=== PATIENT | female | born 1975 | race Caucasian/White ===

== ENCOUNTER 2021-01-26 13:20 | Observation (INO) | payer BC ==
[2021-01-26] MEDS ORDERED: Sodium Chloride 0.9% 2.5 ML Syringe FLUSH PRN (13:25)
[2021-01-26] MEDS ORDERED: Sodium Chloride 0.9% 10 ML Syringe FLUSH PRN (13:25)
--- NOTE | 2021-01-26 13:29 | EDM.PDOC ---
ED HPI GENERAL MEDICAL PROBLEM - General Chief Complaint: Syncope Stated Complaint: FALL Time Seen by Provider: 01/26/21 13:25 - History of Present Illness INITIAL COMMENTS - FREE TEXT/NARRATIVE: History of present illness: [] The patient is here for syncope. 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 She only gets 4 or 5 hours of sleep a day. She has children that are adults but not at home. Patient says she was at the bar and felt normal and then she was suddenly on the floor and people were around her. She said it happened 3 times and witnesses at the bar said she passed out completely. They said she fell and hit her head. She does have a headache. Is never done this before. She does not smoke. She drinks a little bit. She has had a hysterectomy. Review of systems: As per history of present illness and below otherwise all systems reviewed and negative. Past medical history: As per history of present illness and as reviewed below otherwise noncontributory. Surgical history: As per history of present illness and as reviewed below otherwise noncontributory. Social history: No reported history of drug or alcohol abuse. Family history: As per history of present illness and as reviewed below otherwise noncontributory. Physical exam: Constitutional - well developed, well-nourished and in no acute distress HEENT - normocephalic, no evidence of trauma - external nose and mouth normal - no mass in neck and no JVD - mucosae moist EYES - full EOM, PERRL, no icterus - no evidence of inflammation, injection, or drainage Respiratory - no respiratory distress, equal bilateral expansion, lungs clear to auscultation and no abnormal lung sounds Cardiovascular - Regular Rhythm with S1 and S2 appreciated and no murmur, gallop or rub. GI - abdomen soft without distension or organomegaly - normal bowel sounds - no guard or rebound Musculoskeletal no gross deformity of long bones or joints - no tenderness, swelling or edema Neurologic - Alert and oriented times four - CN II-XII grossly intact - motor sensory and coordination symmetrically normal Psychiatric - appropriate mood and affect with normal thought content Hematologic - No petechiae or purpura - mucosa appropriate color and sclera not pale - normal nail bed color and refill Integument - no rash or evidence of trauma - normal turgor Diagnostics: [] Therapeutics: [] Impression: [] Plan: [] Definitive disposition and diagnosis as appropriate pending reevaluation and review of above. - Related Data Allergies Allergy/AdvReac Type Severity Reaction Status Date / Time No Known Allergies Allergy Verified 01/26/21 13:31 Home Meds: Home Meds Levothyroxine [Synthroid] 50 mcg PO ACBREAKFAST 02/21/15 [History] Multivitamin [One Daily] 1 each PO DAILY 07/17/15 [History] Past Medical History - Past Health History Medical/Surgical History: Denies Medical/Surgical History HEENT History: Reports: None Cardiovascular History: Reports: Hypertension Respiratory History: Reports: Other (See Below) Other Respiratory History: Upper Respiratory Resistance Syndrome was diagnosed during a sleep study Gastrointestinal History: Reports: Chronic Constipation, Chronic Diarrhea, GERD Genitourinary History: Reports: None 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: Polycystic Ovaries Musculoskeletal History: Reports: None Other Musculoskeletal History: Degenerative disc disease Neurological History: Reports: Migraines, Other (See Below) Other Neuro History: has permanent ear piercing to treat migranes Psychiatric History: Reports: Anxiety, Depression Endocrine/Metabolic History: Reports: Hypothyroidism, Obesity/BMI 30+ Hematologic History: Reports: None Immunologic History: Reports: None Oncologic (Cancer) History: Reports: None Dermatologic History: Reports: None - Infectious Disease History Infectious Disease History: Reports: Chicken Pox - Past Surgical History Female Surgical History: Reports: D&C, Hysterectomy, Tubal Ligation ED ROS GENERAL - Review of Systems Review Of Systems: Comprehensive ROS is negative, except as noted in HPI. ED EXAM, GENERAL - Physical Exam Exam: See Below Free Text/Narrative:: Physical exam as in the HPI #1 Interpretation EKG Interpretation Comments: EKG done at 1336 sinus rhythm heart rate 94 MI 158 QT duration 451 axis [address] normal T impression normal EKG Course - Vital Signs Text/Narrative:: 1423 hrs. discussed with the internal medicine hospitalist. He wants orthostatic measurements as well as fluid bolus and a Covid swab in case she needs to be monitored overnight. 1445 hrs. the patient is not orthostatic. She had unheralded syncope 3 times. I talked to the hospitalist about the fact that without any warning and sudden unheralded syncope I felt she would benefit from observation on telemetry overnight and he agreed. Patient will be placed in observation. Last Recorded V/S: Last Vital Signs Temp 36.4 C 01/26/21 13:32 Pulse 105 H 01/26/21 13:32 Resp 14 01/26/21 13:32 BP 127/86 01/26/21 13:32 Pulse Ox 99 01/26/21 13:32 Orthostatic Blood Pressure [ 111/71 Standing] Orthostatic Blood Pressure [ 117/78 Sitting] Orthostatic Blood Pressure [ 111/70 Supine] - Orders/Labs/Meds Orders: Active Orders 24 hr Category Date Time Status EKG Documentation Completion [RC] AM Care 01/26/21 13:25 Active Orthostatic Vital Signs [RC] ASDIRECTED Care 01/26/21 14:22 Active Telemetry Monitoring [Cardiac Monitoring] [RC] . Care 01/26/21 13:39 Active DIRECTED CORONAVIRUS COVID-19 SAMANTHA [MOLEC] Stat Lab 01/26/21 14:22 Ordered Sodium Chloride 0.9% [Normal Saline] 1,000 ml Med 01/26/21 14:22 Active IV .Bolus Sodium Chloride 0.9% [Saline Flush] Med 01/26/21 13:25 Active 10 ml FLUSH ASDIRECTED PRN Sodium Chloride 0.9% [Saline Flush] Med 01/26/21 13:25 Active 2.5 ml FLUSH ASDIRECTED PRN Saline Lock Insert [OM.PC] Stat Oth 01/26/21 13:25 Ordered Medication Orders Sodium Chloride (Normal Saline) 1,000 mls @ 1,000 mls/hr IV .Bolus ONE Stop: 01/26/21 15:21 Last Admin: 01/26/21 14:31 Dose: 1,000 mls/hr Documented by: [id number] Sodium Chloride (Sodium Chloride 0.9% 10 Ml Syringe) 10 ml FLUSH ASDIRECTED PRN PRN Reason: Keep Vein Open Last Admin: 01/26/21 13:48 Dose: 10 ml Documented by: [id number] Sodium Chloride (Sodium Chloride 0.9% 2.5 Ml Syringe) 2.5 ml FLUSH ASDIRECTED PRN PRN Reason: Keep Vein Open Last Admin: 01/26/21 13:48 Dose: 2.5 ml Documented by: [id number] Labs: Laboratory Tests 01/26/21 01/26/21 Range/Units 13:33 13:33 WBC 8.59 (4.0-11.0) K/uL RBC 4.24 L (4.30-5.90) M/uL Hgb 13.3 (12.0-16.0) g/dL Hct 38.5 (36.0-46.0) % MCV 90.8 (80.0-98.0) fL MCH 31.4 (27.0-32.0) pg MCHC 34.5 (31.0-37.0) g/dL RDW Std Deviation 43.4 (28.0-62.0) fl RDW Coeff of Jonah 13 (11.0-15.0) % Plt Count 462 H (150-400) K/uL MPV 9.20 (7.40-12.00) fL Neut % (Auto) 63.6 (48.0-80.0) % Lymph % (Auto) 30.0 (16.0-40.0) % [place] % (Auto) 4.9 (0.0-15.0) % Eos % (Auto) 1.3 (0.0-7.0) % Baso % (Auto) 0.2 (0.0-1.5) % Neut # (Auto) 5.5 (1.4-5.7) K/uL Lymph # (Auto) 2.6 H (0.6-2.4) K/uL [place] # (Auto) 0.4 (0.0-0.8) K/uL Eos # (Auto) 0.1 (0.0-0.7) K/uL Baso # (Auto) 0.0 (0.0-0.1) K/uL Nucleated RBC % 0.0 /100WBC Nucleated RBCs # 0 K/uL Sodium 145 (136-145) mmol/L Potassium 3.2 L (3.5-5.1) mmol/L Chloride 104 (98-107) mmol/L Carbon Dioxide 20.9 L (21.0-32.0) mmol/L BUN 8 (7.0-18.0) mg/dL Creatinine 1.0 (0.6-1.0) mg/dL Est Cr Clr Drug Dosing 59.39 mL/min Estimated GFR (MDRD) > 60.0 ml/min Glucose 71 L (74-106) mg/dL Calcium 8.4 L (8.5-10.1) mg/dL Magnesium 2.1 (1.8-2.4) mg/dL Total Bilirubin 0.1 L (0.2-1.0) mg/dL AST 28 (15-37) IU/L ALT 52 (14-63) IU/L Alkaline Phosphatase 114 (46-116) U/L Troponin I < 0.050 (0.000-0.056) ng/mL Total Protein 7.0 (6.4-8.2) g/dL Albumin 3.5 (3.4-5.0) g/dL Globulin 3.5 (2.6-4.0) g/dL Albumin/Globulin Ratio 1.0 (0.9-1.6) Meds: Medications Generic Name Dose Route Start Last Admin Trade Name Freq PRN Reason Stop Dose Admin Sodium Chloride 1,000 mls @ 1,000 mls/hr 01/26/21 14:22 01/26/21 14:31 Normal Saline IV 01/26/21 15:21 1,000 mls/hr .Bolus ONE Administration Sodium Chloride 10 ml 01/26/21 13:25 01/26/21 13:48 Sodium Chloride 0.9% 10 Ml Syringe FLUSH 10 ml ASDIRECTED PRN Administration Keep Vein Open Sodium Chloride 2.5 ml 01/26/21 13:25 01/26/21 13:48 Sodium Chloride 0.9% 2.5 Ml Syringe FLUSH 2.5 ml ASDIRECTED PRN Administration Keep Vein Open Departure - Departure Time of Disposition: 14:45 Disposition: Refer to Observation Condition: Good Clinical Impression: Syncope - Discharge Information Forms: ED Department Discharge Sepsis Event Note (ED) - Focused Exam Vital Signs: Vital Signs Temp Pulse Resp BP Pulse Ox 01/26/21 13:32 36.4 C 105 H 14 127/86 99 - My Orders Last 24 Hours: My Active Orders 01/26/21 13:25 EKG Documentation Completion [RC] AM Sodium Chloride 0.9% [Saline Flush] 10 ml FLUSH ASDIRECTED PRN Sodium Chloride 0.9% [Saline Flush] 2.5 ml FLUSH ASDIRECTED PRN Saline Lock Insert [OM.PC] Stat 01/26/21 13:39 Telemetry Monitoring [Cardiac Monitoring] [RC] . DIRECTED 01/26/21 14:22 Orthostatic Vital Signs [RC] ASDIRECTED CORONAVIRUS COVID-19 SAMANTHA [MOLEC] Stat Sodium Chloride 0.9% [Normal Saline] 1,000 ml IV .Bolus - Assessment/Plan Last 24 Hours: My Active Orders 01/26/21 13:25 EKG Documentation Completion [RC] AM Sodium Chloride 0.9% [Saline Flush] 10 ml FLUSH ASDIRECTED PRN Sodium Chloride 0.9% [Saline Flush] 2.5 ml FLUSH ASDIRECTED PRN Saline Lock Insert [OM.PC] Stat 01/26/21 13:39 Telemetry Monitoring [Cardiac Monitoring] [RC] . DIRECTED 01/26/21 14:22 Orthostatic Vital Signs [RC] ASDIRECTED CORONAVIRUS COVID-19 SAMANTHA [MOLEC] Stat Sodium Chloride 0.9% [Normal Saline] 1,000 ml IV .Bolus
[2021-01-26 14:16] LABS: BLOOD UREA NITROGEN,BUN 8 mg/dL (7.0-18.0); CARBON DIOXIDE,CO2 20.9 mmol/L (21.0-32.0); CHLORIDE,CL 104 mmol/L (98-107); GLUCOSE RANDOM 71 mg/dL (74-106); POTASSIUM,K 3.2 mmol/L (3.5-5.1); SODIUM,NA 145 mmol/L (136-145)
[2021-01-26] MEDS ORDERED: Sodium Chloride 0.9% 1,000 ML IV ONE (14:22)
[2021-01-26] MEDS ORDERED: Potassium Chloride 20 MEQ Tab.ER PO ONE (16:37)
--- NOTE | 2021-01-26 17:55 | PCM.HP.2 ---
H&P History of Present Illness - General Date of Service: 01/26/21 Admit Problem/Dx: Admission Diagnosis/Problem Admission Diagnosis/Problem Syncope - History of Present Illness Initial Comments - Free Text/Narative: 45 yo female with pmh of hypothyroidism who presented to the ED after a syncopal episode at work. 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 She said witness saw her pass out three times and hit her head on the concrete counter. She reports a tension headache and sore buttock. temples Pain Score (Numeric/FACES): 0 - Related Data Allergies/Adverse Reactions: Allergies Allergy/AdvReac Type Severity Reaction Status Date / Time No Known Allergies Allergy Verified 01/26/21 16:20 Home Medications: Home Meds Levothyroxine [Synthroid] 50 mcg PO BEDTIME 02/21/15 [History] Multivitamin [One Daily] 1 each PO DAILY 07/17/15 [History] Calcium Carbonate [Calcium] 660 mg PO BID 01/26/21 [History] Ferrous Sulfate 325 mg PO DAILY 01/26/21 [History] Past Medical History - Past Health History Medical/Surgical History: Denies Medical/Surgical History HEENT History: Reports: None Cardiovascular History: Reports: Hypertension Other Cardiovascular History: HTN prior to wieght loss. Has not taken BP medication since January 2020. Respiratory History: Reports: Other (See Below) Other Respiratory History: Upper Respiratory Resistance Syndrome was diagnosed during a sleep study Gastrointestinal History: Reports: Chronic Constipation, Chronic Diarrhea, GERD Other Gastrointestinal History: GERD stopped with bipass surgery. 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 Musculoskeletal History: Reports: Other (See Below) Other Musculoskeletal History: Degenerative disc disease Neurological History: Reports: Migraines, Other (See Below) Other Neuro History: has permanent ear piercing to treat migranes Psychiatric History: Reports: Anxiety, Depression Endocrine/Metabolic History: Reports: Hypothyroidism, Obesity/BMI 30+ Hematologic History: Reports: Other (See Below) Other Hematologic History: Iron defficinecy without anemia Immunologic History: Reports: None Oncologic (Cancer) History: Reports: None Dermatologic History: Reports: None - Infectious Disease History Infectious Disease History: Reports: Chicken Pox - Past Surgical History Head Surgeries/Procedures: Reports: None HEENT Surgical History: Reports: Adenoidectomy, Tonsillectomy Cardiovascular Surgical History: Reports: None Respiratory Surgical History: Reports: None GI Surgical History: Reports: Cholecystectomy, Other (See Below) Other GI Surgeries/Procedures: Bariatric surgery January 11, 2020. Female Surgical History: Reports: D&C, Hysterectomy, Tubal Ligation Endocrine Surgical History: Reports: Thyroidectomy Other Endocrine Surgeries/Procedures: sub-total thyroidectomy Neurological Surgical History: Reports: None Musculoskeletal Surgical History: Reports: None Oncologic Surgical History: Reports: None Dermatological Surgical History: Reports: None Social & Family History - Family History Family Medical History: No Pertinent Family History - Tobacco Use Tobacco Use Status *Q: Former Tobacco User Used Tobacco, but Quit: Yes Month/Year Tobacco Last Used: 2016 - Caffeine Use Caffeine Use: Reports: None - Recreational Drug Use Recreational Drug Use: No H&P Review of Systems - Review of Systems: Review Of Systems: Comprehensive ROS is negative, except as noted in HPI. Exam - Exam Exam: See Below - Vital Signs Vital Signs: Last Vital Signs Temp 37.0 C 01/26/21 16:05 Pulse 100 01/26/21 16:05 Resp 17 01/26/21 16:05 BP 143/88 H 01/26/21 16:05 Pulse Ox 96 01/26/21 16:05 Orthostatic Blood Pressure [ 111/71 Standing] Orthostatic Blood Pressure [ 117/78 Sitting] Orthostatic Blood Pressure [ 111/70 Supine] Weight: 64.637 kg - Exam General: Alert, Oriented HEENT: Mucosa Moist & [place] Lungs: Clear to Auscultation, Normal Respiratory Effort Cardiovascular: Regular Rate, Regular Rhythm GI/Abdominal Exam: Normal Bowel Sounds, Soft, Non-Tender Extremities: Non-Tender, No Pedal Edema Skin: Warm, Dry, Intact Neurological: Cranial Nerves Intact, Reflexes Equal Bilateral, Strength Equal Bilateral, Normal Gait, Normal Speech, Normal Tone, Sensation Intact. No: Focal Deficit - Patient Data Lab Results Last 24 hrs: Laboratory Results - last 24 hr 01/26/21 01/26/21 01/26/21 Range/Units 13:33 13:33 14:51 WBC 8.59 (4.0-11.0) K/uL RBC 4.24 L (4.30-5.90) M/uL Hgb 13.3 (12.0-16.0) g/dL Hct 38.5 (36.0-46.0) % MCV 90.8 (80.0-98.0) fL MCH 31.4 (27.0-32.0) pg MCHC 34.5 (31.0-37.0) g/dL RDW Std Deviation 43.4 (28.0-62.0) fl RDW Coeff of Jonah 13 (11.0-15.0) % Plt Count 462 H (150-400) K/uL MPV 9.20 (7.40-12.00) fL Neut % (Auto) 63.6 (48.0-80.0) % Lymph % (Auto) 30.0 (16.0-40.0) % [place] % (Auto) 4.9 (0.0-15.0) % Eos % (Auto) 1.3 (0.0-7.0) % Baso % (Auto) 0.2 (0.0-1.5) % Neut # (Auto) 5.5 (1.4-5.7) K/uL Lymph # (Auto) 2.6 H (0.6-2.4) K/uL [place] # (Auto) 0.4 (0.0-0.8) K/uL Eos # (Auto) 0.1 (0.0-0.7) K/uL Baso # (Auto) 0.0 (0.0-0.1) K/uL Nucleated RBC % 0.0 /100WBC Nucleated RBCs # 0 K/uL Sodium 145 (136-145) mmol/L Potassium 3.2 L (3.5-5.1) mmol/L Chloride 104 (98-107) mmol/L Carbon Dioxide 20.9 L (21.0-32.0) mmol/L BUN 8 (7.0-18.0) mg/dL Creatinine 1.0 (0.6-1.0) mg/dL Est Cr Clr Drug Dosing 59.39 mL/min Estimated GFR (MDRD) > 60.0 ml/min Glucose 71 L (74-106) mg/dL POC Glucose (70-99) mg/dL Calcium 8.4 L (8.5-10.1) mg/dL Magnesium 2.1 (1.8-2.4) mg/dL Total Bilirubin 0.1 L (0.2-1.0) mg/dL AST 28 (15-37) IU/L ALT 52 (14-63) IU/L Alkaline Phosphatase 114 (46-116) U/L Troponin I < 0.050 (0.000-0.056) ng/mL Total Protein 7.0 (6.4-8.2) g/dL Albumin 3.5 (3.4-5.0) g/dL Globulin 3.5 (2.6-4.0) g/dL Albumin/Globulin Ratio 1.0 (0.9-1.6) Urine Color Urine Appearance Urine pH (5.0-8.0) Ur Specific [place] (1.001-1.035) Urine Protein (NEGATIVE) mg/dL Urine Glucose (UA) (NEGATIVE) mg/dL Urine Ketones (NEGATIVE) mg/dL Urine Occult Blood (NEGATIVE) Urine Nitrite (NEGATIVE) Urine Bilirubin (NEGATIVE) Urine Urobilinogen (<2.0) EU/dL Ur Leukocyte Esterase (NEGATIVE) Urine RBC (0-2/HPF) Urine WBC (0-5/HPF) Ur Epithelial Cells (NONE-FEW) Urine Bacteria (NEGATIVE) Urine Mucus (NONE-MOD) SARS-CoV-2 RNA (SAMANTHA) NEGATIVE (NEGATIVE) 01/26/21 01/26/21 Range/Units 15:09 17:17 WBC (4.0-11.0) K/uL RBC (4.30-5.90) M/uL Hgb (12.0-16.0) g/dL Hct (36.0-46.0) % MCV (80.0-98.0) fL MCH (27.0-32.0) pg MCHC (31.0-37.0) g/dL RDW Std Deviation (28.0-62.0) fl RDW Coeff of Jonah (11.0-15.0) % Plt Count (150-400) K/uL MPV (7.40-12.00) fL Neut % (Auto) (48.0-80.0) % Lymph % (Auto) (16.0-40.0) % [place] % (Auto) (0.0-15.0) % Eos % (Auto) (0.0-7.0) % Baso % (Auto) (0.0-1.5) % Neut # (Auto) (1.4-5.7) K/uL Lymph # (Auto) (0.6-2.4) K/uL [place] # (Auto) (0.0-0.8) K/uL Eos # (Auto) (0.0-0.7) K/uL Baso # (Auto) (0.0-0.1) K/uL Nucleated RBC % /100WBC Nucleated RBCs # K/uL Sodium (136-145) mmol/L Potassium (3.5-5.1) mmol/L Chloride (98-107) mmol/L Carbon Dioxide (21.0-32.0) mmol/L BUN (7.0-18.0) mg/dL Creatinine (0.6-1.0) mg/dL Est Cr Clr Drug Dosing mL/min Estimated GFR (MDRD) ml/min Glucose (74-106) mg/dL POC Glucose 85 (70-99) mg/dL Calcium (8.5-10.1) mg/dL Magnesium (1.8-2.4) mg/dL Total Bilirubin (0.2-1.0) mg/dL AST (15-37) IU/L ALT (14-63) IU/L Alkaline Phosphatase (46-116) U/L Troponin I (0.000-0.056) ng/mL Total Protein (6.4-8.2) g/dL Albumin (3.4-5.0) g/dL Globulin (2.6-4.0) g/dL Albumin/Globulin Ratio (0.9-1.6) Urine Color YELLOW Urine Appearance CLEAR Urine pH 6.0 (5.0-8.0) Ur Specific [place] <= 1.005 (1.001-1.035) Urine Protein NEGATIVE (NEGATIVE) mg/dL Urine Glucose (UA) NEGATIVE (NEGATIVE) mg/dL Urine Ketones NEGATIVE (NEGATIVE) mg/dL Urine Occult Blood NEGATIVE (NEGATIVE) Urine Nitrite NEGATIVE (NEGATIVE) Urine Bilirubin NEGATIVE (NEGATIVE) Urine Urobilinogen 0.2 (<2.0) EU/dL Ur Leukocyte Esterase TRACE H (NEGATIVE) Urine RBC 0-1 (0-2/HPF) Urine WBC 2-4 (0-5/HPF) Ur Epithelial Cells FEW (NONE-FEW) Urine Bacteria FEW (NEGATIVE) Urine Mucus LIGHT (NONE-MOD) SARS-CoV-2 RNA (SAMANTHA) (NEGATIVE) Result Diagrams: 01/27/21 06:35 01/27/21 06:35 Sepsis Event Note - Evaluation Sepsis Screening Result: No Definite Risk - Focused Exam Vital Signs: Vital Signs Temp Pulse Resp BP Pulse Ox 01/26/21 16:05 37.0 C 100 17 143/88 H 96 01/26/21 15:56 73 17 117/73 98 01/26/21 14:53 87 17 109/73 97 01/26/21 13:53 90 17 121/78 96 01/26/21 13:32 36.4 C 105 H 14 127/86 99 Problem List Initiated/Reviewed/Updated: Yes Orders Last 24hrs: Active Orders 24 hr Category Date Time Status Admission Status [Patient Status] [ADT] Stat ADT 01/26/21 14:46 Active Antiembolic Devices [RC] PER UNIT ROUTINE Care 01/26/21 17:51 Ordered Orthostatic Vital Signs [RC] ASDIRECTED Care 01/26/21 14:22 Active Oxygen Therapy [RC] PRN Care 01/26/21 17:50 Ordered Telemetry Monitoring [Cardiac Monitoring] [RC] . Care 01/26/21 13:39 Active DIRECTED Telemetry Monitoring [Cardiac Monitoring] [RC] Q8H Care 01/26/21 15:58 Active Up ad Fern [RC] ASDIRECTED Care 01/26/21 17:50 Ordered VTE/DVT Education [RC] PER UNIT ROUTINE Care 01/26/21 17:50 Ordered Vital Signs [RC] Q4H Care 01/26/21 17:50 Ordered Regular Diet [DIET] Diet 01/26/21 Dinner Active Head wo Cont [CT] Stat Exams 01/26/21 17:09 Ordered BASIC METABOLIC PANEL,BMP [CHEM] AM Lab 01/27/21 05:11 Ordered CBC WITH AUTO DIFF [HEME] AM Lab 01/27/21 05:11 Ordered CULTURE URINE [MREF] Stat Lab 01/26/21 15:09 Received Calcium Carbonate [Tums] Med 01/27/21 09:00 Active 500 mg PO BID Ferrous Sulfate Med 01/27/21 09:00 Active 325 mg PO DAILY Levothyroxine [Synthroid] Med 01/26/21 21:00 Active 50 mcg PO BEDTIME Multivitamins [Tab-A-Chel] Med 01/27/21 09:00 Active 1 tab PO DAILY Sodium Chloride 0.9% [Saline Flush] Med 01/26/21 13:25 Active 10 ml FLUSH ASDIRECTED PRN Sodium Chloride 0.9% [Saline Flush] Med 01/26/21 13:25 Active 2.5 ml FLUSH ASDIRECTED PRN Saline Lock Insert [OM.PC] Stat Oth 01/26/21 13:25 Ordered Sequential Compression Device [OM.PC] Per Unit Routine Oth 01/26/21 17:51 Ordered Resuscitation Status Routine Resus Stat 01/26/21 17:50 Ordered Medication Orders Calcium Carbonate/Glycine (Calcium Carbonate 500 Mg Tab.Chew) 500 mg PO BID DAVID Ferrous Sulfate (Ferrous Sulfate 325 Mg Tab) 325 mg PO DAILY DAVID Levothyroxine Sodium (Levothyroxine 50 Mcg Tab) 50 mcg PO BEDTIME DAVID Multivitamins/Minerals/Vitamin C (Multivitamin Tab) 1 tab PO DAILY DAVID Sodium Chloride (Sodium Chloride 0.9% 10 Ml Syringe) 10 ml FLUSH ASDIRECTED PRN PRN Reason: Keep Vein Open Last Admin: 01/26/21 13:48 Dose: 10 ml Documented by: [id number] Sodium Chloride (Sodium Chloride 0.9% 2.5 Ml Syringe) 2.5 ml FLUSH ASDIRECTED PRN PRN Reason: Keep Vein Open Last Admin: 01/26/21 13:48 Dose: 2.5 ml Documented by: [id number] Assessment/Plan Comment:: 45 yo female admitted following a syncopal event. She has had no events on telemetry overnight. Patient feels her usual self. I discussed sending home with Mary reagan and patient agrees. Patient to follow up with her primary care provider.
--- NOTE | 2021-01-26 18:28 | CT ---
Indication: Pt w/syncope today, witnessed fall. Technique: CT of the head without contrast. Coronal and sagittal reformats. Bone and soft tissue windows. Comparison: No prior studies available for comparison at this institution. Findings: No acute intracranial hemorrhage or extra-axial collection. No evidence of acute cortical infarction. No mass effect or midline shift. Normal cerebral volume. The ventricles are normal in size, shape and contour. There is normal joyner and white matter differentiation. Incidental focal calcifications/mineralization in the right globus pallidus. The orbital contents are normal. No calvarial fractures. No lytic or sclerotic osseous lesions within the calvarium or skull base. Scalp and other imaged soft tissue structures are normal. Mastoid air cells are clear. Paranasal sinuses are well aerated. Mild mucosal thickening in the left frontal sinus. Nasal septum is deviated to the left. Impression: No acute intracranial abnormality. Please note that all CT scans at this facility use dose modulation, iterative reconstruction, and/or weight-based dosing when appropriate to reduce radiation dose to as low as reasonably achievable. Dictated by Reynaldo Angeles MD @ 01/26/2021 6:25:[address] Reynaldo Angeles @ Jan 26 2021 6:25PM
[2021-01-26] MEDS ORDERED: Levothyroxine 50 MCG Tab PO SCH (21:00)
[2021-01-27 07:36] LABS: BLOOD UREA NITROGEN,BUN 13 mg/dL (7.0-18.0); CARBON DIOXIDE,CO2 27.5 mmol/L (21.0-32.0); CHLORIDE,CL 109 mmol/L (98-107); GLUCOSE RANDOM 85 mg/dL (74-106); POTASSIUM,K 3.9 mmol/L (3.5-5.1); SODIUM,NA 145 mmol/L (136-145)
[2021-01-27] MEDS ORDERED: Multivitamin Tab PO SCH (09:00)
[2021-01-27] MEDS ORDERED: Calcium Carbonate 500 MG Tab.Chew PO SCH (09:00)
[2021-01-27] MEDS ORDERED: Ferrous Sulfate 325 MG Tab PO SCH (09:00)
[2021-01-27 12:33] VITALS: BP 138/100; PULSE 79
== END 2021-01-27 16:24 | disposition home or self-care (01) ==
LOC: MW.ED 13:20 → MW.MS 14:46
PROVIDERS: ADMIT Internal Medicine; ATTEND Internal Medicine
DX: R55 Syncope and collapse (principal); E03.9 Hypothyroidism, unspecified; I10 Essential (primary) hypertension; E66.9 Obesity, unspecified; Z87.891 Personal history of nicotine dependence; Z20.822 Contact with and (suspected) exposure to COVID-19; Z79.899 Other long term (current) drug therapy; Z79.890 Hormone replacement therapy; Z98.890 Other specified postprocedural states; Z90.49 Acquired absence of other specified parts of digestive tract; Z68.25 Body mass index [BMI] 25.0-25.9, adult
CPT/HCPCS: 36415; 70450; 80048; 80053; 81001; 82947; 83735; 84443; 84484; 85025; 87086; 87635; 93005; A9270; J7030; 99285-25; U0002

== ENCOUNTER 2022-07-30 20:22 | Emergency (ER) | payer OTHER, BC ==
[2022-07-30] MEDS ORDERED: Octyl 2-Cyanoacrylate 1 g/1 mL 1 APPLIC PEN TOP STA (21:17)
[2022-07-30 21:56] VITALS: BP 144/107; PULSE 75
== END 2022-07-30 21:56 | disposition home or self-care (01) ==
LOC: MW.ED 20:22
DX: S01.21XA Laceration without foreign body of nose, initial encounter (principal); S01.01XA Laceration without foreign body of scalp, initial encounter; I10 Essential (primary) hypertension; E03.9 Hypothyroidism, unspecified; D50.9 Iron deficiency anemia, unspecified; E66.9 Obesity, unspecified; Z68.28 Body mass index [BMI] 28.0-28.9, adult; Z79.899 Other long term (current) drug therapy; W20.8XXA Other cause of strike by thrown, projected or falling object, initial encounter
CPT/HCPCS: 12002; 12013; 99282; A9270

== ENCOUNTER 2024-04-12 15:57 | Emergency (ER) | payer BC ==
[2024-04-12] MEDS ORDERED: Sodium Chloride 0.9% 2.5 ML Syringe FLUSH PRN (16:16)
[2024-04-12] MEDS ORDERED: Sodium Chloride 0.9% 10 ML Syringe FLUSH PRN (16:16)
[2024-04-12] MEDS: Sodium Chloride 0.9% 1,000 ML IV ONE (16:52)
[2024-04-12] MEDS: Morphine 4 MG/ML Syringe IVPUSH ONE (16:52)
[2024-04-12 17:01] LABS: BASOPHILS ABSOLUTE AUTO 0.04 K/uL (0.00-0.20); BASOPHILS PERCENT AUTO 0.5 % (0.0-1.0); EOSINOPHILS ABSOLUTE AUTO 0.26 K/uL (0.00-0.45); HEMATOCRIT 35.8 % (37.0-47.0); HEMOGLOBIN 12.6 g/dL (12.0-16.0); IMMATURE GRAN ABSOLUTE AUTO 0.01 K/uL (0.00-0.05); IMMATURE GRAN PERCENT AUTO 0.1 % (0.0-0.4); LYMPHOCYTES ABSOLUTE AUTO 2.64 K/uL (1.00-4.80); MEAN CORPUSCULAR HEMOGLOBIN 32.6 pg (28.0-32.0); MEAN CORPUSCULAR HGB CONC 35.2 g/dL (32.0-36.0); MEAN CORPUSCULAR VOLUME 92.7 fL (83.0-99.0); MEAN PLATELET VOLUME 9.3 fL (9.4-12.3); MONOCYTES ABSOLUTE AUTO 0.64 K/uL (0.00-0.80); MONOCYTES PERCENT AUTO 7.3 % (0.0-8.0); NEUTROPHILS ABSOLUTE AUTO 5.21 K/uL (1.80-7.70); NEUTROPHILS PERCENT AUTO 59.1 % (41.0-71.0); PLATELET COUNT,PLT 258 K/uL (150-400); RED BLOOD CELL COUNT 3.86 M/uL (4.10-5.30)
[2024-04-12 17:29] LABS: A/G RATIO 1.2 (0.9-1.6); ALBUMIN 3.4 g/dL (3.4-5.0); BILIRUBIN TOTAL 0.3 mg/dL (0.2-1.0); CALCIUM 8.4 mg/dL (8.5-10.1); CARBON DIOXIDE,CO2 23.1 mmol/L (21.0-32.0); CREATININE 1.2 mg/dL (0.6-1.0); EST CRCL DRUG DOSING (CG) 47.94 mL/min; POTASSIUM,K 3.8 mmol/L (3.5-5.1); PROTEIN TOTAL,TP 6.3 g/dL (6.4-8.2)
[2024-04-12 17:44] LABS: LACTIC ACID 0.7 mmol/L (0.4-2.0)
[2024-04-12] MEDS: Iopamidol 755 MG/ML 500 ML Multipack Bottle IVPUSH STA (17:56)
[2024-04-12 18:05] LABS: APPEARANCE,URINE CLEAR; BILIRUBIN,URINE NEGATIVE (NEGATIVE); COLOR,URINE YELLOW; GLUCOSE,URINE NEGATIVE (NEGATIVE); KETONES,URINE NEGATIVE (NEGATIVE); LEUKOCYTE ESTERASE,URINE TRACE (NEGATIVE); NITRITE,URINE NEGATIVE (NEGATIVE); OCCULT BLOOD,URINE NEGATIVE (NEGATIVE); PH,URINE 6.5 (5.0-8.0); PROTEIN,URINE NEGATIVE (NEGATIVE); UROBILINOGEN,URINE 0.2 EU/dL (<2.0)
[2024-04-12 18:21] LABS: BACTERIA,URINE RARE (NEGATIVE); EPITHELIAL CELLS,URINE RARE (NONE-FEW); RBC,URINE 0-2 (0-2/HPF); WBC,URINE 0-1 (0-5/HPF)
[2024-04-12 19:05] LABS: CANDIDA DNA PROBE NEGATIVE (NEGATIVE); GARDNERELLA DNA PROBE POSITIVE (NEGATIVE); TRICHOMONAS DNA PROBE NEGATIVE (NEGATIVE)
[2024-04-12 19:31] LABS: C. TRACHOMATIS BY PCR NOT DETECTED; N. GONORRHOEAE BY PCR NOT DETECTED
[2024-04-12 19:52] VITALS: BP 110/79; PULSE 70
== END 2024-04-12 20:14 | disposition home or self-care (01) ==
LOC: MW.ED 15:57
DX: N76.0 Acute vaginitis (principal); I10 Essential (primary) hypertension; E03.9 Hypothyroidism, unspecified; E66.9 Obesity, unspecified; Z68.22 Body mass index [BMI] 22.0-22.9, adult; Z90.49 Acquired absence of other specified parts of digestive tract; Z90.710 Acquired absence of both cervix and uterus; Z79.899 Other long term (current) drug therapy
CPT/HCPCS: 36415; 74177; 76856; 80053; 81001; 83605; 83690; 84703; 85025; 87480; 87491; 87510; 87591; 87660; 96361; 96374; 99284; J2270; J7030; Q9967

== ENCOUNTER 2024-07-08 08:49 | Day surgery (SDC) | payer BC ==
[~2024-07-08 08:49] MED LIST: propofoL 500 MG/50 ML 50 ML ONE
[2024-07-08] MEDS: Lactated Ringers 1,000 ML IV SCH (09:10)
[2024-07-08] MEDS ORDERED: Propofol 200 MG/20 ML SDV ONE ×2 (09:31→09:51)
[2024-07-08] MEDS ORDERED: Lactated Ringers 1,000 ML IV SCH (10:45)
[2024-07-08 11:10] VITALS: BP 115/66; PULSE 62
== END 2024-07-08 11:40 | disposition home or self-care (01) ==
LOC: MW.SDS 08:49
PROVIDERS: ATTEND Surgery
DX: K52.9 Noninfective gastroenteritis and colitis, unspecified (principal); R19.4 Change in bowel habit; K58.9 Irritable bowel syndrome, unspecified; I10 Essential (primary) hypertension; E03.9 Hypothyroidism, unspecified; F17.290 Nicotine dependence, other tobacco product, uncomplicated; Z80.0 Family history of malignant neoplasm of digestive organs; Z79.899 Other long term (current) drug therapy; Z79.890 Hormone replacement therapy; Z86.0100 Personal history of colon polyps, unspecified
CPT/HCPCS: 45380; J2704; J7120; 00811